=== PATIENT | female | born 1950 | race Caucasian/White ===

== ENCOUNTER → 2020-09-09 | Outpatient (REF) | payer MEDICARE ==
[2020-09-09 17:37] LABS: FERRITIN 6 NG/ML (8-252); IRON (FE) 29 UG/DL (50-170); TOTAL IRON BINDING CAPACITY 482 UG/DL (250-450)
[2020-09-09 17:45] LABS: VITAMIN B12 LEVEL 562 PG/ML
[2020-09-09 17:46] LABS: FOLATE > 24.0 NG/ML
== END ==
LOC: M LAB REF 16:58
PROVIDERS: ATTEND Internal Medicine Nephrology
DX: D64.9 Anemia, unspecified (principal)

== ENCOUNTER 2020-09-19 10:09 | Outpatient (CLI) | payer MEDICARE ==
[~2020-09-19] VITALS: Ht 167.6 cm; Wt 68.9 kg
[~2020-09-19 10:09] MED LIST: ALBUTEROL SULFATE 2.5 MG/0.5 ML INH NEB SOLN INH PRN; EPINEPHrine INJ 1 MG/ML 1ML AMP IM PRN; diphenhydrAMINE 50MG/ML VIAL (J1200) IV PRN; methylPREDNISolone 125MG 2ML VIAL IV PRN
[2020-09-19 10:36] VITALS: BP 95/68
[2020-09-19] MEDS ORDERED: FERRIC CARBOXYMALTOSE INJ 750 MG in NS 250 ML IV ONE (11:00)
[2020-09-19] MEDS ORDERED: diphenhydrAMINE 50MG/ML VIAL (J1200) IV ONE (11:00)
[2020-09-19] MEDS ORDERED: NS 1,000 ML IV SCH (11:00)
[2020-09-19 12:50] VITALS: BP 88/68
== END 2020-09-19 12:50 | disposition home or self-care (01) ==
LOC: M INFU 10:09
PROVIDERS: ATTEND Internal Medicine Nephrology
DX: D50.9 Iron deficiency anemia, unspecified (principal); N18.32 Chronic kidney disease, stage 3b; R32 Unspecified urinary incontinence; I12.9 Hypertensive chronic kidney disease with stage 1 through stage 4 chronic kidney disease, or unspecified chronic kidney disease; Z88.0 Allergy status to penicillin; Z88.1 Allergy status to other antibiotic agents; Z88.2 Allergy status to sulfonamides; Z88.6 Allergy status to analgesic agent
CPT/HCPCS: 76775; 76857; 96365; J1439

== ENCOUNTER → 2020-09-19 | Outpatient (CLI) | payer MEDICARE ==
--- NOTE | 2020-09-19 10:54 | REP ---
INDICATION: CKD STAGE 3B, BLADDER US WITH PVR. COMPARISON: None. TECHNIQUE: Bilateral renal ultrasound. FINDINGS: The right kidney measures 8.9 x 3.8 x 9.3 cm. The left kidney measures 9.3 x 4.2 x 4.1 cm. Both kidneys are in the low normal size range. Renal cortical echogenicity is normal bilaterally. There is no calculus or hydronephrosis on the right or the left. There are no solid or cystic renal masses on the right or the left. IMPRESSION: The kidneys are than low normal size range. Otherwise, negative renal ultrasound. <Electronically signed by Jus Pate > 09/19/20 [id number]
--- NOTE | 2020-09-19 10:57 | REP ---
INDICATION: CKD STAGE 3B, BLADDER US WITH PVR. COMPARISON: None. TECHNIQUE: Bladder ultrasound. FINDINGS: The prevoid bladder volume is 328 mL. The postvoid bladder volume is 30 mL. The postvoid residual is 9%. There is a nodule along the bladder wall inferiorly measuring 1-1.2 x 1.7 cm. This is nonspecific and could represent a neoplasm, polyp, focal inflammation or scarring. IMPRESSION: There is 9% bladder residual on the postvoid film. There is a nonspecific nodule along the inferior bladder wall as described above. <Electronically signed by Jus Pate > 09/19/20 [id number]
== END ==
LOC: M RAD 09:33
PROVIDERS: ATTEND Internal Medicine Nephrology
DX: N18.32 Chronic kidney disease, stage 3b (principal); R32 Unspecified urinary incontinence; I12.9 Hypertensive chronic kidney disease with stage 1 through stage 4 chronic kidney disease, or unspecified chronic kidney disease

== ENCOUNTER 2020-10-01 09:40 | Outpatient (CLI) | payer MEDICARE ==
[~2020-10-01] VITALS: Ht 147.3 cm; Wt 68.0 kg
[~2020-10-01 09:40] MED LIST changes: +FERRIC CARBOXYMALTOSE INJ 750 MG in NS 250 ML IV ONE; +NS 1,000 ML IV SCH; +diphenhydrAMINE 50MG/ML VIAL (J1200) IV ONE
[2020-10-01] MEDS ORDERED: EPINEPHrine INJ 1 MG/ML 1ML AMP IM PRN (10:00)
[2020-10-01] MEDS ORDERED: diphenhydrAMINE 50MG/ML VIAL (J1200) IV ONE (10:00)
[2020-10-01] MEDS ORDERED: NS 1,000 ML IV SCH (10:00)
[2020-10-01] MEDS ORDERED: diphenhydrAMINE 50MG/ML VIAL (J1200) IV PRN (10:00)
[2020-10-01] MEDS ORDERED: FERRIC CARBOXYMALTOSE INJ 750 MG in NS 250 ML IV ONE (10:00)
[2020-10-01] MEDS ORDERED: methylPREDNISolone 125MG 2ML VIAL IV PRN (10:00)
[2020-10-01] MEDS ORDERED: ALBUTEROL SULFATE 2.5 MG/0.5 ML INH NEB SOLN INH PRN (10:00)
[2020-10-01 10:14] VITALS: BP 105/52
[2020-10-01 11:35] VITALS: BP 92/52
== END 2020-10-01 11:40 | disposition home or self-care (01) ==
LOC: M INFU 09:40
PROVIDERS: ATTEND Internal Medicine Nephrology
DX: D50.9 Iron deficiency anemia, unspecified (principal); Z79.899 Other long term (current) drug therapy
CPT/HCPCS: 96365; J1439

== ENCOUNTER → 2020-10-23 | Outpatient (REF) | payer MEDICARE ==
[2020-10-23 19:32] LABS: APPEARANCE, URINE CLEAR (CLEAR); BACTERIA, URINE AUTO NEGATIVE (NEGATIVE); BILIRUBIN, URINE AUTO NEGATIVE (NEGATIVE); BLOOD, URINE BLOOD NEGATIVE (NEGATIVE); COLOR, URINE YELLOW (YELLOW); GLUCOSE, URINE (UA) AUTO NEGATIVE (NEGATIVE); KETONE, URINE AUTO NEGATIVE (NEGATIVE); LEUKOCYTE ESTERASE, URINE AUTO TRACE (NEGATIVE); NITRITE, URINE AUTO NEGATIVE (NEGATIVE); PROTEIN, URINE AUTO NEGATIVE (NEGATIVE); RBC, URINE AUTO 0 /HPF (0-3); SPECIFIC GRAVITY URINE AUTO 1.015 (1.002-1.035); SQUAMOUS EPITHELIAL CELL UR AU 0 /HPF (0-6); UROBILINOGEN, URINE AUTO 0.2 mg/dL (0.0-2.0); WBC, URINE AUTO 6 /HPF (0-3)
== END ==
LOC: M SMT 16:44
PROVIDERS: ATTEND Nurse Practitioner Women's Health
DX: R93.41 Abnormal radiologic findings on diagnostic imaging of renal pelvis, ureter, or bladder (principal); Z79.899 Other long term (current) drug therapy
CPT/HCPCS: 81001; 87086; G0463

== ENCOUNTER → 2020-12-03 | Outpatient (CLI) | payer MEDICARE ==
[~2020-12-03] MED LIST changes: -ALBUTEROL SULFATE 2.5 MG/0.5 ML INH NEB SOLN INH PRN; -EPINEPHrine INJ 1 MG/ML 1ML AMP IM PRN; -FERRIC CARBOXYMALTOSE INJ 750 MG in NS 250 ML IV ONE; +ISOVUE-370 76% 100ML VIAL As Ordered ONE; -NS 1,000 ML IV SCH; -diphenhydrAMINE 50MG/ML VIAL (J1200) IV ONE; -diphenhydrAMINE 50MG/ML VIAL (J1200) IV PRN; -methylPREDNISolone 125MG 2ML VIAL IV PRN
--- NOTE | 2020-12-03 16:31 | REP ---
INDICATION: LESION ON BLADDER. COMPARISON: None TECHNIQUE: Axial precontrast, contrast-enhanced and delayed images from the lung bases to the pubic symphysis using 100 cc Isovue 370 intravenous contrast material. Coronal and sagittal reformations obtained along with CT urogram. This CT examination was performed using the following dose reduction techniques: Automated exposure control, adjustment of mA and/or kv according to the patient's size, and the use of iterative reconstruction technique. FINDINGS: 1 cm dependent calcification in the bladder consistent with bladder stone. Delayed images suggest very mild thickening at the right bladder trigone of uncertain clinical significance. The bilateral kidneys and ureters are normal in all phases of evaluation. Liver, spleen, pancreas, and bilateral adrenal glands are normal. Evidence for prior cholecystectomy with compensatory biliary ductal dilatation noted. Moderate to large paraesophageal gastric hiatal hernia noted. There is no evidence for bowel obstruction or acute inflammatory process. Sigmoid diverticulosis noted without acute diverticulitis. Further evaluation of the pelvis demonstrates prior hysterectomy. Bladder as described above. Abdominal aorta and vasculature appear normal and without aneurysm or dissection. No ascites. No free air. No adenopathy. Musculoskeletal structures demonstrate epidural stimulator at the thoracic level along with evidence for prior lumbar laminectomy. IMPRESSION: 1. Bladder demonstrates 1 cm bladder stone and very subtle nonspecific prominence along the right bladder trigone. The bilateral kidneys/ureters are normal. 2. Moderate to large paraesophageal gastric hiatal hernia. 3. Diverticulosis without acute diverticulitis. 4. Evidence for prior cholecystectomy, hysterectomy, and laminectomy. <Electronically signed by Brody Limon > 12/03/20 [id number]
== END ==
LOC: M RAD 15:06
PROVIDERS: ATTEND Urology
DX: N21.0 Calculus in bladder (principal); K44.9 Diaphragmatic hernia without obstruction or gangrene; K57.30 Diverticulosis of large intestine without perforation or abscess without bleeding; N32.9 Bladder disorder, unspecified; Z90.49 Acquired absence of other specified parts of digestive tract
CPT/HCPCS: 74178; Q9967

== ENCOUNTER → 2021-04-16 | Outpatient (REF) | payer MEDICARE ==
[2021-04-16 17:11] LABS: APPEARANCE, URINE CLEAR (CLEAR); BACTERIA, URINE AUTO NEGATIVE (NEGATIVE); BILIRUBIN, URINE AUTO NEGATIVE (NEGATIVE); BLOOD, URINE BLOOD NEGATIVE (NEGATIVE); COLOR, URINE YELLOW (YELLOW); GLUCOSE, URINE (UA) AUTO NEGATIVE (NEGATIVE); KETONE, URINE AUTO NEGATIVE (NEGATIVE); LEUKOCYTE ESTERASE, URINE AUTO 2+ (NEGATIVE); MUCUS, URINE SMALL (NEGATIVE); NITRITE, URINE AUTO NEGATIVE (NEGATIVE); PROTEIN, URINE AUTO NEGATIVE (NEGATIVE); RBC, URINE AUTO 0 /HPF (0-3); SQUAMOUS EPITHELIAL CELL UR AU 1 /HPF (0-6); TRANSITIONAL EPITHELIAL AUTO <1 /HPF; WBC, URINE AUTO 20 /HPF (0-3)
== END ==
LOC: M SMT 16:43
PROVIDERS: ATTEND Nurse Practitioner Women's Health
DX: N21.0 Calculus in bladder (principal)
CPT/HCPCS: 81001; 87086; G0463

== ENCOUNTER → 2021-05-18 | Outpatient (REF) | payer MEDICARE | LOC: M LAB REF 17:14 | PROVIDERS: ATTEND Internal Medicine Nephrology | DX: N21.0 Calculus in bladder (principal) ==

== ENCOUNTER → 2021-05-21 | Outpatient (CLI) | payer MEDICARE ==
--- NOTE | 2021-05-21 12:10 | REP ---
INDICATION: CALCULUS IN BLADDER. COMPARISON: CT 12/03/2020. TECHNIQUE: AP view abdomen and pelvis. FINDINGS: There is mild diffuse fecal material throughout the colon. There is no bowel obstruction, with no significantly dilated bowel loops identified. There is a heterogeneous calcific density overlying the bladder 1.2 cm in diameter. Metallic wires are visualized overlying the right side of the abdomen, the inferior aspect of these wires overlies the right iliac bone. The superior aspect crosses the right upper quadrant to the midline, and the cephalic tip overlies the T10 vertebral body in the midline. There is evidence of prior laminectomy at L3 through L5. IMPRESSION: Heterogeneous 1.2 cm calcification overlies the bladder and may represent a calculus. <Electronically signed by Jus Garland > 05/21/21 [id number]
== END ==
LOC: M RAD 09:14
DX: N20.0 Calculus of kidney (principal)

== ENCOUNTER 2021-06-10 07:59 | Outpatient (CLI) | payer MEDICARE ==
[~2021-06-10] VITALS: Ht 167.6 cm; Wt 73.9 kg
[~2021-06-10 07:59] MED LIST changes: +ALBUTEROL SULFATE 2.5 MG/0.5 ML INH NEB SOLN INH PRN; +EPINEPHrine INJ 1 MG/ML 1ML AMP IM PRN; -ISOVUE-370 76% 100ML VIAL As Ordered ONE; +diphenhydrAMINE 50MG/ML VIAL (J1200) IV PRN; +methylPREDNISolone 125MG 2ML VIAL IV PRN
[2021-06-10] MEDS ORDERED: diphenhydrAMINE 50MG/ML VIAL (J1200) IV ONE (08:00)
[2021-06-10] MEDS ORDERED: FERRIC CARBOXYMALTOSE INJ 750 MG, VIAL MATE ADAPTER 1 EACH in NS 250 ML IV ONE (08:00)
[2021-06-10] MEDS ORDERED: NS 1,000 ML IV SCH (08:00)
[2021-06-10 08:10] VITALS: BP 98/53
[2021-06-10 09:33] VITALS: BP 96/51
== END 2021-06-10 09:33 | disposition home or self-care (01) ==
LOC: M INFU 07:59
PROVIDERS: ATTEND Internal Medicine Nephrology
DX: D50.9 Iron deficiency anemia, unspecified (principal); Z88.1 Allergy status to other antibiotic agents; Z88.2 Allergy status to sulfonamides; Z88.6 Allergy status to analgesic agent; Z88.8 Allergy status to other drugs, medicaments and biological substances
CPT/HCPCS: 96365; J1439

== ENCOUNTER 2021-06-17 08:11 | Outpatient (CLI) | payer MEDICARE ==
[~2021-06-17] VITALS: Ht 142.2 cm; Wt 73.9 kg
[~2021-06-17 08:11] MED LIST changes: +FERRIC CARBOXYMALTOSE INJ 750 MG, VIAL MATE ADAPTER 1 EACH in NS 250 ML IV ONE; +NS 1,000 ML IV SCH; +diphenhydrAMINE 50MG/ML VIAL (J1200) IV ONE
[2021-06-17 08:15] VITALS: BP 124/60
[2021-06-17 09:30] VITALS: BP 101/53
[2021-06-17 10:48] VITALS: BP 102/52
[2021-06-17 11:15] VITALS: BP 110/66
== END 2021-06-17 11:15 | disposition home or self-care (01) ==
LOC: M INFU 08:11
PROVIDERS: ATTEND Internal Medicine Nephrology
DX: D50.9 Iron deficiency anemia, unspecified (principal); Z88.0 Allergy status to penicillin; Z88.1 Allergy status to other antibiotic agents; Z88.6 Allergy status to analgesic agent; Z88.8 Allergy status to other drugs, medicaments and biological substances
CPT/HCPCS: 96365; 96366; J1439

== ENCOUNTER 2021-12-17 08:21 | Outpatient (CLI) | payer MEDICARE ==
[~2021-12-17] VITALS: Ht 142.2 cm; Wt 78.0 kg
[~2021-12-17 08:21] MED LIST changes: -FERRIC CARBOXYMALTOSE INJ 750 MG, VIAL MATE ADAPTER 1 EACH in NS 250 ML IV ONE; -diphenhydrAMINE 50MG/ML VIAL (J1200) IV ONE
[2021-12-17] MEDS ORDERED: FERRIC CARBOXYMALTOSE INJ 750 MG, VIAL MATE ADAPTER 1 EACH in NS 250 ML IV ONE (08:30)
[2021-12-17 08:54] VITALS: BP 125/60
[2021-12-17] MEDS ORDERED: LEXA1TAB PO (09:16)
[2021-12-17] MEDS ORDERED: TORS10TA3 PO (09:16)
[2021-12-17] MEDS ORDERED: ASPI81CH33 PO (09:16)
[2021-12-17] MEDS ORDERED: LYRI75CA PO (09:16)
[2021-12-17] MEDS ORDERED: LEVO50TA5 PO (09:16)
[2021-12-17] MEDS ORDERED: BUPR75TA5 PO (09:16)
[2021-12-17 10:08] VITALS: BP 109/54
== END 2021-12-17 10:10 | disposition home or self-care (01) ==
LOC: M INFU 08:21
PROVIDERS: ATTEND Internal Medicine Nephrology
DX: D50.9 Iron deficiency anemia, unspecified (principal); Z88.2 Allergy status to sulfonamides; Z88.1 Allergy status to other antibiotic agents; Z88.8 Allergy status to other drugs, medicaments and biological substances
CPT/HCPCS: 96365; J1439

== ENCOUNTER → 2021-12-22 | Outpatient (CLI) | payer MEDICARE ==
[~2021-12-22] MED LIST changes: -ALBUTEROL SULFATE 2.5 MG/0.5 ML INH NEB SOLN INH PRN; +ASPI81CH33 PO; +BUPR75TA5 PO; -EPINEPHrine INJ 1 MG/ML 1ML AMP IM PRN; +GASTROGRAFIN SOLUTION 30ML (Q9963) As Ordered ONE; +ISOVUE-370 76% 100ML VIAL As Ordered ONE; +LEVO50TA5 PO; +LEXA1TAB PO; +LYRI75CA PO; -NS 1,000 ML IV SCH; +TORS10TA3 PO; -diphenhydrAMINE 50MG/ML VIAL (J1200) IV PRN; -methylPREDNISolone 125MG 2ML VIAL IV PRN
== END ==
LOC: M RAD 13:02
PROVIDERS: ATTEND Internal Medicine Nephrology
DX: N18.32 Chronic kidney disease, stage 3b (principal); N21.0 Calculus in bladder
CPT/HCPCS: 74177; Q9963; Q9967

== ENCOUNTER 2021-12-24 09:20 | Outpatient (CLI) | payer MEDICARE ==
[~2021-12-24] VITALS: Ht 142.2 cm; Wt 77.7 kg
[~2021-12-24 09:20] MED LIST changes: +ALBUTEROL SULFATE 2.5 MG/0.5 ML INH NEB SOLN INH PRN; +EPINEPHrine INJ 1 MG/ML 1ML AMP IM PRN; -GASTROGRAFIN SOLUTION 30ML (Q9963) As Ordered ONE; -ISOVUE-370 76% 100ML VIAL As Ordered ONE; +diphenhydrAMINE 50MG/ML VIAL (J1200) IV PRN; +methylPREDNISolone 125MG 2ML VIAL IV PRN
[2021-12-24] MEDS ORDERED: FERRIC CARBOXYMALTOSE INJ 750 MG, VIAL MATE ADAPTER 1 EACH in NS 250 ML IV ONE (09:30)
[2021-12-24] MEDS ORDERED: NS 1,000 ML IV SCH (09:30)
[2021-12-24 09:40] VITALS: BP 137/71
[2021-12-24 11:00] VITALS: BP 126/65
[2021-12-24 11:30] VITALS: BP 111/73
== END 2021-12-24 11:50 | disposition home or self-care (01) ==
LOC: M INFU 09:20
PROVIDERS: ATTEND Internal Medicine Nephrology
DX: D50.9 Iron deficiency anemia, unspecified (principal); Z88.1 Allergy status to other antibiotic agents; Z88.2 Allergy status to sulfonamides; Z88.8 Allergy status to other drugs, medicaments and biological substances
CPT/HCPCS: 96365; 96366; J1439

== ENCOUNTER → 2022-08-31 | Outpatient (CLI) | payer MEDICARE ==
[~2022-08-31] MED LIST changes: -ALBUTEROL SULFATE 2.5 MG/0.5 ML INH NEB SOLN INH PRN; -EPINEPHrine INJ 1 MG/ML 1ML AMP IM PRN; -diphenhydrAMINE 50MG/ML VIAL (J1200) IV PRN; -methylPREDNISolone 125MG 2ML VIAL IV PRN
== END ==
LOC: M RAD 12:16
PROVIDERS: ATTEND Physician Assistant
DX: L97.522 Non-pressure chronic ulcer of other part of left foot with fat layer exposed (principal)

== ENCOUNTER 2022-09-13 15:57 | Inpatient (IN) | payer MEDICARE ==
[~2022-09-13] VITALS: Ht 139.7 cm; Wt 72.8 kg
[2022-09-13] MEDS ORDERED: PREG75CA2 (23:01)
[2022-09-13] MEDS ORDERED: HYDR2TAB2 PO (23:01)
[2022-09-13] MEDS ORDERED: SIMV20TA22 (23:01)
[2022-09-13] MEDS ORDERED: METH-1177 PO (23:01)
[2022-09-13] MEDS ORDERED: PREGABALIN 75 MG CAP(LYRICA) PO ONE (23:30)
[2022-09-13 23:37] LABS: BASO % 0.5 % (0.0-1.0); EOS # 0.1 10^3/uL (0.0-0.5); EOS % 1.3 % (0.0-3.0); LYMPH # 1.7 10^3/uL (1.5-5.0); LYMPH % 26.4 % (24.0-44.0); MEAN CORPUSCULAR VOLUME 68.1 fl (80.0-96.0); MONO # 0.5 10^3/uL (0.0-0.8); MONO % 8.3 % (2.0-8.0); NEUTROPHILS # 3.9 10^3/uL (1.5-8.5); NEUTROPHILS % 62.7 % (36.0-66.0); PLATELET COUNT, AUTOMATED 233 10^3/uL (150-450); RED BLOOD COUNT 2.88 10^6/uL (4.00-5.40); WHITE BLOOD COUNT 6.3 10^3/uL (4.0-10.0)
[2022-09-13 23:39] LABS: HEMATOCRIT 19.6 % (36.0-47.0); HEMOGLOBIN 4.9 g/dl (12.0-15.5)
[2022-09-14] VITALS (9 sets, daily range): BP systolic 105–142; BP diastolic 55–68
[2022-09-14 00:04] LABS: BLOOD UREA NITROGEN 16 MG/DL (9-23); CALCIUM LEVEL 8.4 MG/DL (8.3-10.6); CARBON DIOXIDE LEVEL 27 MMOL/L (20-31); CHLORIDE LEVEL 109 MMOL/L (98-107); CK-MB VALUE MASS < 1.0 NG/ML (<3.6); CREATININE FOR GFR 0.99 MG/DL (0.55-1.30); GLUCOSE, FASTING 77 MG/DL (74-106); POTASSIUM SERUM 4.5 MMOL/L (3.5-5.1); SODIUM LEVEL 142 MMOL/L (136-145)
[2022-09-14 00:07] LABS: CPK CREATINE PHOSPHOKINASE 60 U/L (34-145); MB/CK RELATIVE INDEX 1.66 (< OR =4)
[2022-09-14 00:12] LABS: INR 0.97; PARTIAL THROMBOPLASTIN TIME 25.2 SECONDS (24.8-34.2); PROTHROMBIN TIME 13.1 SECONDS (12.5-14.5)
[2022-09-14] MEDS ORDERED: ISOVUE-370 76% 100ML VIAL As Ordered ONE (01:02)
[2022-09-14 01:09] LABS: CK-MB VALUE MASS < 1.0 NG/ML (<3.6)
[2022-09-14 01:11] LABS: CPK CREATINE PHOSPHOKINASE 46 U/L (34-145); IRON (FE) 9 UG/DL (50-170); MB/CK RELATIVE INDEX 2.17 (< OR =4); TOTAL IRON BINDING CAPACITY 449 UG/DL (250-425)
[2022-09-14 01:13] LABS: FERRITIN 2.9 NG/ML (7.3-270.7)
[2022-09-14] MEDS ORDERED: MOM 30ML SUSPENSION UDC PO PRN (01:15)
[2022-09-14] MEDS ORDERED: ACETAMINOPHEN TAB 650MG DOSE (2X325MG) PO PRN (01:15)
[2022-09-14] MEDS ORDERED: TORS10TA3 PO (02:04)
[2022-09-14] MEDS ORDERED: LEXA1TAB PO (02:04)
[2022-09-14] MEDS ORDERED: SIMV20TA22 PO (02:04)
[2022-09-14] MEDS ORDERED: VITA100093 PO (02:04)
[2022-09-14] MEDS ORDERED: BUPR300T92 PO (02:04)
[2022-09-14] MEDS ORDERED: SYNT75TA PO (02:04)
[2022-09-14] MEDS ORDERED: DILA2TAB6 PO (02:04)
[2022-09-14] MEDS ORDERED: ALBU8.5H INH (02:04)
[2022-09-14] MEDS ORDERED: ALLE180T33 PO (02:04)
[2022-09-14] MEDS ORDERED: HOME MED LIST COMPLETE! XX SCH (02:05)
[2022-09-14] MEDS ORDERED: ALBUTEROL 90 MCG/ACT 8GM HFA INHALER INH PRN (02:15)
[2022-09-14] MEDS ORDERED: HYDROmorphone 2 MG TAB PO PRN (02:15)
[2022-09-14] MEDS: METHADONE 10MG TAB PO SCH ×2 (03:58→20:38)
[2022-09-14] MEDS: PREGABALIN 75 MG CAP(LYRICA) PO SCH ×4 (06:02→20:38)
[2022-09-14] MEDS: LEVOTHYROXINE 75MCG TABLET (0.075MG) PO SCH (06:02)
[2022-09-14] MEDS: TORSEMIDE 10 MG TABLET PO SCH (08:07)
[2022-09-14] MEDS ORDERED: ASPIRIN 81MG CHEW TABLET PO SCH (09:00)
[2022-09-14] MEDS: buPROPion **XL** TABLET 150MG (WELLBUTRIN XL) PO SCH (09:01)
[2022-09-14] MEDS: DOCUSATE SODIUM 100MG CAPSULE PO SCH ×2 (09:01→20:37)
[2022-09-14] MEDS: ESCITALOPRAM OXALATE 10 MG TAB (LEXAPRO) PO SCH (09:02)
[2022-09-14] MEDS: FERROUS SULFATE 325MG TAB PO SCH ×2 (09:02→20:38)
[2022-09-14 12:12] LABS: CALCIUM LEVEL 8.5 MG/DL (8.3-10.6); GLOMERULAR FILTRATION RATE 58.4 (>39); POTASSIUM SERUM 3.8 MMOL/L (3.5-5.1)
[2022-09-14 12:43] LABS: HEMOGLOBIN 10.2 g/dl (12.0-15.5)
[2022-09-14] MEDS: FEXOFENADINE 60MG TAB PO SCH (20:37)
[2022-09-14] MEDS: SIMVASTATIN 20 MG TAB PO SCH (20:38)
[2022-09-15 05:51] LABS: HEMATOCRIT 33.7 % (36.0-47.0); HEMOGLOBIN 10.1 g/dl (12.0-15.5); MEAN CORPUSCULAR HEMOGLOBIN 23.2 pg (27.0-33.0); MEAN CORPUSCULAR VOLUME 77.5 fl (80.0-96.0); PLATELET COUNT, AUTOMATED 189 10^3/uL (150-450); RED BLOOD COUNT 4.35 10^6/uL (4.00-5.40); WHITE BLOOD COUNT 6.4 10^3/uL (4.0-10.0)
[2022-09-15] MEDS: LEVOTHYROXINE 75MCG TABLET (0.075MG) PO SCH (06:17)
[2022-09-15 06:21] LABS: ALBUMIN 2.9 G/DL (3.2-5.2); BILIRUBIN,TOTAL 0.7 MG/DL (0.3-1.2); CALCIUM LEVEL 8.5 MG/DL (8.3-10.6); CREATININE FOR GFR 1.01 MG/DL (0.55-1.30); GLOMERULAR FILTRATION RATE 57.7 (>39); POTASSIUM SERUM 3.7 MMOL/L (3.5-5.1); TOTAL PROTEIN 5.7 G/DL (5.7-8.2)
[2022-09-15 08:27] VITALS: BP 123/60
[2022-09-15] MEDS: DOCUSATE SODIUM 100MG CAPSULE PO SCH ×2 (08:34→20:31)
[2022-09-15] MEDS: PREGABALIN 75 MG CAP(LYRICA) PO SCH ×4 (08:34→20:30)
[2022-09-15] MEDS: ESCITALOPRAM OXALATE 10 MG TAB (LEXAPRO) PO SCH (08:34)
[2022-09-15] MEDS: FERROUS SULFATE 325MG TAB PO SCH ×3 (08:34→21:00)
[2022-09-15] MEDS: buPROPion **XL** TABLET 150MG (WELLBUTRIN XL) PO SCH (08:34)
[2022-09-15] MEDS: TORSEMIDE 10 MG TABLET PO SCH (08:34)
[2022-09-15] MEDS: IRON SUCROSE 200 MG in NS 100 ML IV SCH (10:44)
[2022-09-15 11:10] VITALS: BP 124/64
[2022-09-15 14:00] VITALS: BP 115/55
[2022-09-15] MEDS ORDERED: GOLYTELY SOLN 4000 ML BTL PO ONE (16:00)
[2022-09-15] MEDS: FEXOFENADINE 60MG TAB PO SCH (20:30)
[2022-09-15] MEDS: SIMVASTATIN 20 MG TAB PO SCH (20:31)
[2022-09-15] MEDS: METHADONE 10MG TAB PO SCH (20:31)
[2022-09-15 20:32] VITALS: BP 120/58
[2022-09-15] MEDS ORDERED: BISACODYL 5MG TAB PO ONE (21:00)
[2022-09-16 02:14] VITALS: O2SAT 97
[2022-09-16 06:23] VITALS: BP 146/67
[2022-09-16] MEDS: LEVOTHYROXINE 75MCG TABLET (0.075MG) PO SCH (06:28)
[2022-09-16 08:21] LABS: HEMATOCRIT 36.9 % (36.0-47.0); HEMOGLOBIN 10.8 g/dl (12.0-15.5); MEAN CORPUSCULAR HEMOGLOBIN 23.1 pg (27.0-33.0); MEAN CORPUSCULAR HGB CONC 29.3 g/dl (32.0-36.5); PLATELET COUNT, AUTOMATED 199 10^3/uL (150-450); RED BLOOD COUNT 4.67 10^6/uL (4.00-5.40); WHITE BLOOD COUNT 7.1 10^3/uL (4.0-10.0)
[2022-09-16 08:53] LABS: ALBUMIN 3.5 G/DL (3.2-5.2); BILIRUBIN,TOTAL 0.8 MG/DL (0.3-1.2); CALCIUM LEVEL 9.2 MG/DL (8.3-10.6); CREATININE FOR GFR 1.07 MG/DL (0.55-1.30); POTASSIUM SERUM 3.2 MMOL/L (3.5-5.1); TOTAL PROTEIN 6.6 G/DL (5.7-8.2)
[2022-09-16] MEDS: DOCUSATE SODIUM 100MG CAPSULE PO SCH (09:00)
[2022-09-16] MEDS: FERROUS SULFATE 325MG TAB PO SCH (09:00)
[2022-09-16] MEDS: ESCITALOPRAM OXALATE 10 MG TAB (LEXAPRO) PO SCH (09:56)
[2022-09-16] MEDS: PREGABALIN 75 MG CAP(LYRICA) PO SCH ×2 (09:56→14:07)
[2022-09-16] MEDS: buPROPion **XL** TABLET 150MG (WELLBUTRIN XL) PO SCH (09:56)
[2022-09-16] MEDS: IRON SUCROSE 200 MG in NS 100 ML IV SCH (10:00)
[2022-09-16] MEDS ORDERED: LIDOCAINE 2% 100MG/5ML SDV (FOR ANES.) As Ordered ONE (11:14)
[2022-09-16] MEDS ORDERED: fentaNYL 100 MCG/2 ML INJECTION As Ordered ONE (11:14)
[2022-09-16] MEDS ORDERED: propofoL 200 MG/20 ML VIAL As Ordered ONE (11:14)
[2022-09-16] MEDS ORDERED: PHENYLephrine 500MCG 5ML (100MCG/ML) SYRINGE As Ordered ONE (12:30)
[2022-09-16 14:00] VITALS: BP 110/58
[2022-09-16] MEDS ORDERED: POTASSIUM CHLORIDE 10MEQ SR TABLET PO ONE (14:25)
[2022-09-16] MEDS ORDERED: FERR1TAB8 PO (14:37)
[2022-09-16] MEDS ORDERED: ACET1TAB55 PO (14:37)
[2022-09-16] MEDS ORDERED: COLA100C5 PO (14:37)
[2022-09-16] MEDS ORDERED: PROT1TAB2 PO (15:07)
== END 2022-09-16 17:01 | disposition home or self-care (01) | DRG 812 ==
LOC: M ED 15:57 → M ED INP 09-14 01:11 → M MSPAV 09-15 11:28
PROVIDERS: ADMIT Internal Medicine; ATTEND Internal Medicine
PROC: 30233N1 Transfusion of Nonautologous Red Blood Cells into Peripheral Vein, Percutaneous Approach (ICD-10-PCS; 2022-09-14)
PROC: 0DJD8ZZ Inspection of Lower Intestinal Tract, Via Natural or Artificial Opening Endoscopic (ICD-10-PCS; 2022-09-16)
PROC: 0DB78ZX Excision of Stomach, Pylorus, Via Natural or Artificial Opening Endoscopic, Diagnostic (ICD-10-PCS; principal; 2022-09-16 12:00)
DX: D50.9 Iron deficiency anemia, unspecified (principal); N18.30 Chronic kidney disease, stage 3 unspecified; G60.8 Other hereditary and idiopathic neuropathies; L93.0 Discoid lupus erythematosus; I12.9 Hypertensive chronic kidney disease with stage 1 through stage 4 chronic kidney disease, or unspecified chronic kidney disease; E03.9 Hypothyroidism, unspecified; K44.9 Diaphragmatic hernia without obstruction or gangrene; J45.909 Unspecified asthma, uncomplicated; E78.5 Hyperlipidemia, unspecified; F32.A Depression, unspecified; D62 Acute posthemorrhagic anemia; F41.9 Anxiety disorder, unspecified; K29.70 Gastritis, unspecified, without bleeding; K57.30 Diverticulosis of large intestine without perforation or abscess without bleeding; S91.302S Unspecified open wound, left foot, sequela; K64.8 Other hemorrhoids; Z96.653 Presence of artificial knee joint, bilateral; Z79.82 Long term (current) use of aspirin; Z79.890 Hormone replacement therapy; Z79.899 Other long term (current) drug therapy; Z88.0 Allergy status to penicillin; Z88.6 Allergy status to analgesic agent; Z88.1 Allergy status to other antibiotic agents; Z88.2 Allergy status to sulfonamides; Z88.8 Allergy status to other drugs, medicaments and biological substances

== ENCOUNTER → 2023-04-13 | Outpatient (REF) | payer MEDICARE ==
[~2023-04-13] MED LIST changes: +ACET1TAB55 PO; +ALBU8.5H INH; +ALLE180T33 PO; +BUPR300T92 PO; +COLA100C5 PO; +DILA2TAB6 PO; +FERR1TAB8 PO; +HYDR2TAB2 PO; +METH-1177 PO; +PREG75CA2; +PROT1TAB2 PO; +SIMV20TA22; +SIMV20TA22 PO; +SYNT75TA PO; +VITA100093 PO
[2023-04-13 18:13] LABS: PERCENT SATURATION 7.9 % (13.2-45.0)
[2023-04-13 18:17] LABS: FERRITIN 9.5 NG/ML (7.3-270.7)
== END ==
LOC: M LAB REF 17:19
PROVIDERS: ATTEND Internal Medicine Nephrology
DX: D50.9 Iron deficiency anemia, unspecified (principal)

== ENCOUNTER 2023-06-20 14:25 | Outpatient (CLI) | payer MEDICARE ==
[~2023-06-20] VITALS: Ht 141 cm; Wt 66.0 kg
[~2023-06-20 14:25] MED LIST changes: +ALBUTEROL SULFATE 2.5MG/0.5ML INH NEB SOLN INH PRN; +EPINEPHrine INJ 1 MG/ML 1ML AMP IM PRN; -PREG75CA2; +PREG75CA3; +diphenhydrAMINE 50MG/ML VIAL IV PRN; +methylPREDNISolone 125MG 2ML VIAL IV PRN
[2023-06-20 15:00] VITALS: BP 120/74; O2SAT 98
[2023-06-20] MEDS ORDERED: FERRIC CARBOXYMALTOSE INJ 750 MG in NS 250 ML (>50kg) IV ONE ×3 (15:30)
[2023-06-20] MEDS ORDERED: NS 1,000 ML IV SCH (15:30)
[2023-06-20 17:00] VITALS: BP 129/72; O2SAT 99
== END 2023-06-20 17:00 ==
LOC: M INFU 14:25
PROVIDERS: ATTEND Internal Medicine Nephrology
DX: E61.1 Iron deficiency (principal); Z88.0 Allergy status to penicillin; Z88.1 Allergy status to other antibiotic agents; Z88.2 Allergy status to sulfonamides; Z88.5 Allergy status to narcotic agent; Z88.8 Allergy status to other drugs, medicaments and biological substances
CPT/HCPCS: 96365; J1439

== ENCOUNTER → 2024-11-12 | Outpatient (REF) | payer MEDICARE ==
[~2024-11-12] MED LIST changes: -ALBUTEROL SULFATE 2.5MG/0.5ML INH NEB SOLN INH PRN; +BUPR-597 PO; -BUPR300T92 PO; -EPINEPHrine INJ 1 MG/ML 1ML AMP IM PRN; -diphenhydrAMINE 50MG/ML VIAL IV PRN; -methylPREDNISolone 125MG 2ML VIAL IV PRN
[2024-11-12 19:31] LABS: PERCENT SATURATION 3.2 % (13.2-45.0)
[2024-11-12 19:34] LABS: FERRITIN 5.1 NG/ML (7.3-270.7)
== END ==
LOC: M LAB REF 17:07
PROVIDERS: ATTEND Internal Medicine Nephrology
DX: D50.9 Iron deficiency anemia, unspecified (principal)

== ENCOUNTER 2024-12-10 11:33 | Outpatient (CLI) | payer MEDICARE ==
[~2024-12-10] VITALS: Ht 139.7 cm; Wt 61.4 kg
[~2024-12-10 11:33] MED LIST changes: +ALBUTEROL SULFATE 2.5MG/0.5ML INH NEB SOLN INH PRN; +EPINEPHrine INJ 1 MG/ML 1ML AMP IM PRN; +diphenhydrAMINE 50MG/ML VIAL IV PRN; +methylPREDNISolone 125MG 2ML VIAL IV PRN
[2024-12-10 11:40] VITALS: BP 128/78; O2SAT 98
[2024-12-10] MEDS: IRON SUCROSE 300 MG in NS 250 ML OVER 90 MIN. IV ONE (12:19)
[2024-12-10 13:56] VITALS: BP 118/66; O2SAT 98
== END 2024-12-10 14:15 ==
LOC: M INFU 11:33
PROVIDERS: ATTEND Internal Medicine Nephrology
DX: E61.1 Iron deficiency (principal); Z88.0 Allergy status to penicillin; Z88.2 Allergy status to sulfonamides; Z88.6 Allergy status to analgesic agent; Z88.8 Allergy status to other drugs, medicaments and biological substances
CPT/HCPCS: 96365; 96366; J1756

== ENCOUNTER 2024-12-17 15:00 | Outpatient (CLI) | payer MEDICARE ==
[~2024-12-17] VITALS: Ht 139.7 cm; Wt 61.4 kg
[2024-12-17] MEDS: IRON SUCROSE 300 MG in NS 250 ML OVER 90 MIN. IV ONE (15:27)
[2024-12-17 15:30] VITALS: BP 119/59; O2SAT 96
[2024-12-17 17:20] VITALS: BP 117/68; O2SAT 100
== END 2024-12-17 17:15 ==
LOC: M INFU 15:00
PROVIDERS: ATTEND Internal Medicine Nephrology
DX: E61.1 Iron deficiency (principal); Z88.0 Allergy status to penicillin; Z88.1 Allergy status to other antibiotic agents; Z88.2 Allergy status to sulfonamides; Z88.6 Allergy status to analgesic agent
CPT/HCPCS: 96365; 96366; J1756

== ENCOUNTER 2024-12-31 13:10 | Outpatient (CLI) | payer MEDICARE ==
[~2024-12-31 13:10] MED LIST changes: +IRON SUCROSE 300 MG in NS 250 ML OVER 90 MIN. IV ONE
[2024-12-31] MEDS: IRON SUCROSE 300 MG in NS 250 ML OVER 90 MIN. IV ONE (13:22)
[2024-12-31 15:00] VITALS: BP 97/55; O2SAT 96
== END 2024-12-31 15:00 ==
LOC: M INFU 13:10
PROVIDERS: ATTEND Internal Medicine Nephrology
DX: E61.1 Iron deficiency (principal); Z88.0 Allergy status to penicillin; Z88.2 Allergy status to sulfonamides; Z88.6 Allergy status to analgesic agent; Z88.8 Allergy status to other drugs, medicaments and biological substances
CPT/HCPCS: 96365; 96366; J1756

== ENCOUNTER → 2025-05-06 | Outpatient (REF) | payer MEDICARE ==
[~2025-05-06] MED LIST changes: -ALBUTEROL SULFATE 2.5MG/0.5ML INH NEB SOLN INH PRN; -BUPR-597 PO; +BUPR-766 PO; -EPINEPHrine INJ 1 MG/ML 1ML AMP IM PRN; -IRON SUCROSE 300 MG in NS 250 ML OVER 90 MIN. IV ONE; -diphenhydrAMINE 50MG/ML VIAL IV PRN; -methylPREDNISolone 125MG 2ML VIAL IV PRN
[2025-05-06 18:02] LABS: IRON (FE) 31.0 UG/DL (50-170); PERCENT SATURATION 7.7 % (13.2-45.0)
== END ==
LOC: M LAB REF 16:57
PROVIDERS: ATTEND Internal Medicine Nephrology
DX: D50.9 Iron deficiency anemia, unspecified (principal)

== ENCOUNTER 2025-06-06 10:23 | Outpatient (CLI) | payer MEDICARE ==
[~2025-06-06] VITALS: Ht 139.7 cm; Wt 63.6 kg
[~2025-06-06 10:23] MED LIST changes: +ALBUTEROL SULFATE 2.5 MG/0.5 ML INH CONCENTRATE NEB SOLN INH PRN; +EPINEPHrine INJ 1 MG/ML 1ML AMP IM PRN; +diphenhydrAMINE 50 MG/ML VIAL IV PRN
[2025-06-06 12:50] VITALS: BP 136/62; O2SAT 96
[2025-06-06] MEDS ORDERED: NS (Normal Saline) 0.9% 1,000 ML IV SCH (13:00)
[2025-06-06] MEDS: IRON SUCROSE 300 MG in NS 250 ML OVER 90 MIN. IV ONE (13:39)
[2025-06-06 15:15] VITALS: BP 113/56; O2SAT 97
== END 2025-06-06 13:00 ==
LOC: M INFU 10:23
PROVIDERS: ATTEND Internal Medicine Nephrology
DX: E61.1 Iron deficiency (principal); Z88.0 Allergy status to penicillin; Z88.2 Allergy status to sulfonamides; Z88.6 Allergy status to analgesic agent
CPT/HCPCS: 96365; 96366; J1756

== ENCOUNTER 2025-06-13 12:45 | Outpatient (CLI) | payer MEDICARE ==
[~2025-06-13] VITALS: Ht 139.7 cm; Wt 63.6 kg
[~2025-06-13 12:45] MED LIST changes: +ALBUTEROL SULFATE 2.5 MG/0.5 ML INH CONCENTRATE NEB SOLN INH PRN; +EPINEPHrine INJ 1 MG/ML 1ML AMP IM PRN; +diphenhydrAMINE 50 MG/ML VIAL IV PRN
[2025-06-13 12:50] VITALS: BP 112/56; O2SAT 100
[2025-06-13] MEDS: IRON SUCROSE 300 MG in NS 250 ML OVER 90 MIN. IV ONE (13:00)
[2025-06-13 15:00] VITALS: BP 139/90; O2SAT 99
== END 2025-06-13 15:00 | disposition home or self-care (01) ==
LOC: M INFU 12:45
PROVIDERS: ATTEND Internal Medicine Nephrology
DX: E61.1 Iron deficiency (principal); Z88.0 Allergy status to penicillin; Z88.2 Allergy status to sulfonamides; Z88.6 Allergy status to analgesic agent; N39.0 Urinary tract infection, site not specified
CPT/HCPCS: 81001; 96365; 96366; J1756

== ENCOUNTER → 2025-06-13 | Outpatient (REF) | payer MEDICARE ==
[~2025-06-13] MED LIST changes: -ALBUTEROL SULFATE 2.5 MG/0.5 ML INH CONCENTRATE NEB SOLN INH PRN; -EPINEPHrine INJ 1 MG/ML 1ML AMP IM PRN; -diphenhydrAMINE 50 MG/ML VIAL IV PRN
[2025-06-13 19:10] LABS: AMORPHOUS SEDIMENT SMALL (NEGATIVE); APPEARANCE, URINE CLOUDY (CLEAR); BACTERIA, URINE AUTO 2+ (NEGATIVE); BILIRUBIN, URINE AUTO NEGATIVE (NEGATIVE); BLOOD, URINE BLOOD NEGATIVE (NEGATIVE); CALCIUM OXALATE CRYSTALS SMALL; GLUCOSE, URINE (UA) AUTO NEGATIVE (NEGATIVE); KETONE, URINE AUTO TRACE mg/dL (NEGATIVE); LEUKOCYTE ESTERASE, URINE AUTO 2+ (NEGATIVE); MUCUS, URINE SMALL (NEGATIVE); NITRITE, URINE AUTO NEGATIVE (NEGATIVE); PROTEIN, URINE AUTO NEGATIVE (NEGATIVE); RBC, URINE AUTO 3 /HPF (0-3); SPECIFIC GRAVITY URINE AUTO 1.029 (1.002-1.035); SQUAMOUS EPITHELIAL CELL UR AU 4 /HPF (0-6); UROBILINOGEN, URINE AUTO 0.2 mg/dL (0.0-2.0); WBC, URINE AUTO 42 /HPF (0-3)
== END ==
LOC: M LAB REF 17:22
PROVIDERS: ATTEND Physician Assistant Medical
DX: N39.0 Urinary tract infection, site not specified (principal)

== ENCOUNTER 2025-06-20 12:42 | Outpatient (CLI) | payer MEDICARE ==
[~2025-06-20] VITALS: Ht 139.7 cm; Wt 63.6 kg
[~2025-06-20 12:42] MED LIST changes: +NS (Normal Saline) 0.9% 1,000 ML IV SCH
[2025-06-20 13:33] VITALS: BP 121/57; O2SAT 96
[2025-06-20] MEDS: IRON SUCROSE 300 MG in NS 250 ML IV ONE (14:03)
[2025-06-20 15:37] VITALS: BP 119/59; O2SAT 97
== END 2025-06-20 15:50 | disposition home or self-care (01) ==
LOC: M INFU 12:42
PROVIDERS: ATTEND Internal Medicine Nephrology
DX: E61.1 Iron deficiency (principal); Z88.0 Allergy status to penicillin; Z88.2 Allergy status to sulfonamides; Z88.6 Allergy status to analgesic agent
CPT/HCPCS: 96365; 96366; J1756